=== PATIENT | female | born 1970 | race Two or more races ===

== ENCOUNTER 2022-12-18 14:36 | Outpatient (CLI) | payer BC, SELFPAY ==
[2022-12-18 14:44] VITALS: BMI 20.9
[2022-12-18 14:55] VITALS: BP 143/86; PULSE 87; RESP 18; O2SAT 96
[2022-12-18 15:23] LABS: Chloride 106 mmol/L (98-107)
[2022-12-18 15:24] LABS: Potassium 4.2 mmoL/L (3.5-5.1); Sodium 139 mmol/L (136-145)
[2022-12-18 15:27] LABS: Anion Gap 10.2 mEq/L (5-15); Blood Urea Nitrogen 13 mg/dl (7-17); Calcium 8.6 mg/dl (8.4-10.2); Carbon Dioxide 27 mmol/L (22.0-30.0); Creatinine Clearance Estimated 80 mL/min (50-200); Estimated Glomerular Filt Rate 88 ml/min (>60); GFR (African American) 107 ML/MIN (>60); Glucose 108 mg/dl (74-100)
== END 2022-12-18 15:10 | disposition home or self-care (01) ==
LOC: INF 14:37
PROVIDERS: Visit Provider Physician Assistant Medical
DX: M81.0 Age-related osteoporosis without current pathological fracture (principal)
CPT/HCPCS: 36415; 80048; 96372; J0897

== ENCOUNTER → 2023-01-09 10:42 | Outpatient (CLI) | payer BC, SELFPAY ==
[2023-01-09 12:36] LABS: Anion Gap 6.4 mEq/L (5-15); Blood Urea Nitrogen 11 mg/dl (7-17); Calcium 8.9 mg/dl (8.4-10.2); Carbon Dioxide 28 mmol/L (22.0-30.0); Chloride 107 mmol/L (98-107); Estimated Glomerular Filt Rate 105 ml/min (>60); GFR (African American) 128 ML/MIN (>60); Glucose 131 mg/dl (74-100); Potassium 4.4 mmoL/L (3.5-5.1); Sodium 137 mmol/L (136-145)
== END ==
PROVIDERS: PCP Family Medicine; Visit Provider Physician Assistant Medical
DX: M81.0 Age-related osteoporosis without current pathological fracture (principal)
CPT/HCPCS: 36415; 80048